=== PATIENT | female | born 1975 | race Caucasian/White ===

== ENCOUNTER 2016-09-24 14:11 | Inpatient (IN) | payer BC ==
[~2016-09-24] VITALS: Ht 160 cm; Wt 72.3 kg
[2016-09-24 14:37] LABS: BASOPHIL COUNT 0.1 K/uL (0-0.1); EOSINOPHIL (%) 0 % (0-5); HEMATOCRIT 39.3 % (36.0-46.0); IMMATURE GRANULOCYTE (%) 0.7 % (0.0-0.7); IMMATURE GRANULOCYTE COUNT 0.2 K/uL; INSTRUMENT ABS NEUTROPHIL CT 23.7 K/uL; LYMPHOCYTE COUNT 0.7 K/uL (1.0-2.8); MCHC 34.4 G/DL (30.0-36.0); MCV 84.5 FL (83-99); MEAN PLAT.VOLUME 10.9 uM^3 (9.5-12.4); MONOCYTE (%) 4.4 % (3-12); MONOCYTE COUNT 1.2 K/uL (0-0.8); NEUTROPHIL (%) 91.8 % (45-76); NEUTROPHIL COUNT 23.7 K/uL (1.8-6.4); PLATELET COUNT 298 K/uL (156-360); RBC DIS.WIDTH-CV 12.2 % (11.8-14.6); RBC DIS.WIDTH-SD 37.1 % (39-53); RED BLOOD COUNT 4.65 M/uL (3.80-5.20); WHITE BLOOD COUNT 25.9 K/uL (4.1-10.2)
[2016-09-24 14:46] LABS: CHLORIDE 103 mEq/L (99-109); POTASSIUM 3.6 mEq/L (3.7-5.4); SODIUM 137 mEq/L (136-147)
[2016-09-24 14:47] LABS: GLUCOSE 109 mg/dL (70-99)
[2016-09-24 14:49] LABS: ANION GAP 16 MEQ/L (2-14)
[2016-09-24 14:51] LABS: GFR ESTIMATE (CALCULATED) 44 mL/min/
[2016-09-24 14:52] LABS: UREA NITROGEN (BUN) 17 mg/dL (9-23)
[2016-09-24 15:00] LABS: QUANTITATIVE HCG < 4.0 MIU/ML
[2016-09-24 15:54] LABS: VENOUS PCO2 < 20 mm Hg (41-51)
[2016-09-24 15:57] LABS: CARBON DIOXIDE (BICARBONATE) ND MEQ/L (20-31)
[2016-09-24 16:23] LABS: TOTAL BILIRUBIN 1.1 mg/dL (0.0-1.0)
[2016-09-24 16:24] LABS: ALKALINE PHOSPHATASE 67 IU/L (3-129)
[2016-09-24 16:26] LABS: DIRECT BILIRUBIN 0.4 mg/dL (0.0-0.3)
[2016-09-24 16:44] LABS: ADD MIUA? YES; BILIRUBIN NEGATIVE; BLOOD SMALL; COLOR STRAW ((YELLOW)); GLUCOSE (STRIP) NEGATIVE; KETONES 20; LEUKOCYTES MODERATE; NITRITE NEGATIVE; PROTEIN (STRIP) 30; SPECIFIC GRAVITY 1.006 (1.000-1.030); UROBILINOGEN 0.2 MG/DL (0.2-1.0)
[2016-09-24 17:01] LABS: BACTERIA RARE /HPF; EPITHELIAL CELLS RARE /HPF; MUCUS TRACE /LPF; RED BLOOD CELLS 0-5 /HPF (0-5); UCUL ADDED? NO; WHITE BLOOD CELLS 15-20 /HPF (0-5)
[2016-09-24 18:21] LABS: INFLUENZA A VIRAL ANTIGEN NEGATIVE; INFLUENZA B VIRAL ANTIGEN NEGATIVE
[2016-09-24 22:37] VITALS: BP 111/55
[2016-09-25 00:41] VITALS: BP 116/61
[2016-09-25 07:55] VITALS: BP 135/63
[2016-09-25 08:11] LABS: EOSINOPHIL (%) 0 % (0-5); IMMATURE GRANULOCYTE (%) 0.5 % (0.0-0.7); IMMATURE GRANULOCYTE COUNT 0.1 K/uL; INSTRUMENT ABS NEUTROPHIL CT 10.2 K/uL; LYMPHOCYTE COUNT 0.2 K/uL (1.0-2.8); MCHC 33.8 G/DL (30.0-36.0); MCV 85.6 FL (83-99); MONOCYTE (%) 3.8 % (3-12); MONOCYTE COUNT 0.4 K/uL (0-0.8); NEUTROPHIL (%) 93.4 % (45-76); NEUTROPHIL COUNT 10.2 K/uL (1.8-6.4); RBC DIS.WIDTH-CV 12.5 % (11.8-14.6); RBC DIS.WIDTH-SD 39.1 % (39-53); RED BLOOD COUNT 3.97 M/uL (3.80-5.20); WHITE BLOOD COUNT 10.9 K/uL (4.1-10.2)
[2016-09-25 08:35] LABS: CHLORIDE 112 mEq/L (99-109); SODIUM 138 mEq/L (136-147)
[2016-09-25 08:37] LABS: GLUCOSE 125 mg/dL (70-99)
[2016-09-25 08:39] LABS: ANION GAP 11 MEQ/L (2-14)
[2016-09-25 08:41] LABS: GFR ESTIMATE (CALCULATED) 58 mL/min/
[2016-09-25 08:42] LABS: UREA NITROGEN (BUN) 15 mg/dL (9-23)
[2016-09-25 09:40] LABS: MEAN PLAT.VOLUME 11.8 uM^3 (9.5-12.4); PLAT.SUFFICIENCY ADEQUATE
[2016-09-25 09:41] LABS: PLATELET COUNT 191 K/uL (156-360)
[2016-09-25 17:48] VITALS: BP 123/62
[2016-09-25 23:36] VITALS: BP 99/59
[2016-09-26 06:37] LABS: HEMATOCRIT 29.5 % (36.0-46.0); MCH 29.4 PG (29.0-34.0); MCHC 33.6 G/DL (30.0-36.0); MCV 87.5 FL (83-99); MEAN PLAT.VOLUME 11.6 uM^3 (9.5-12.4); PLATELET COUNT 159 K/uL (156-360); RBC DIS.WIDTH-CV 12.6 % (11.8-14.6); RBC DIS.WIDTH-SD 40.9 % (39-53); RED BLOOD COUNT 3.37 M/uL (3.80-5.20)
[2016-09-26 07:04] LABS: ANION GAP 12 MEQ/L (2-14); CHLORIDE 107 MEQ/L (99-109); GFR ESTIMATE (CALCULATED) > 59 mL/min/; GLUCOSE 120 mg/dL (70-99); POTASSIUM 3.4 MEQ/L (3.7-5.4); SAMPLE HEMOLYSIS CHECK 0; SAMPLE ICTERIC CHECK 0; SAMPLE LIPEMIA CHECK 0; SODIUM 137 MEQ/L (136-147); UREA NITROGEN (BUN) 13 mg/dL (9-23)
[2016-09-26 07:47] LABS: ABS NEUTROPHIL COUNT 12.7; ATYPICAL LYMPHOCYTE 0.9 %; BAND NEUTROPHILS 0.9 % (0-8.0); BASOPHILS 1.7 %; BURR CELLS 2+; EOSINOPHIL ABS CT 0.1; EOSINOPHILS 0.9 % (0-5.0); INSTRUMENT ABS NEUTROPHIL CT 12.4 K/uL; LYMPHOCYTES 2.6 % (15.0-45.0); MYELOCYTES 0.9 %; PLAT.SUFFICIENCY ADEQUATE; POIKILOCYTOSIS 3+; SEG.NEUTROPHILS 89.5 % (46.0-76.0)
[2016-09-26 07:58] VITALS: BP 107/57
[2016-09-26 17:00] VITALS: BP 133/63
[2016-09-27 00:01] VITALS: BP 111/54
[2016-09-27 06:23] LABS: EOSINOPHIL (%) 0.9 % (0-5); EOSINOPHIL COUNT 0.1 K/uL (0-0.3); HEMATOCRIT 29.2 % (36.0-46.0); IMMATURE GRANULOCYTE (%) 0.6 % (0.0-0.7); IMMATURE GRANULOCYTE COUNT 0.1 K/uL; INSTRUMENT ABS NEUTROPHIL CT 6.7 K/uL; LYMPHOCYTE COUNT 1.9 K/uL (1.0-2.8); MCH 29.6 PG (29.0-34.0); MCHC 33.9 G/DL (30.0-36.0); MCV 87.2 FL (83-99); MONOCYTE (%) 11.3 % (3-12); MONOCYTE COUNT 1.1 K/uL (0-0.8); NEUTROPHIL (%) 67.9 % (45-76); NEUTROPHIL COUNT 6.7 K/uL (1.8-6.4); PLATELET COUNT 186 K/uL (156-360); RBC DIS.WIDTH-CV 12.8 % (11.8-14.6); RBC DIS.WIDTH-SD 40.6 % (39-53); RED BLOOD COUNT 3.35 M/uL (3.80-5.20); WHITE BLOOD COUNT 9.8 K/uL (4.1-10.2)
[2016-09-27 06:53] LABS: ANION GAP 8 MEQ/L (2-14); CHLORIDE 108 MEQ/L (99-109); GFR ESTIMATE (CALCULATED) > 59 mL/min/; GLUCOSE 92 mg/dL (70-99); POTASSIUM 3.9 MEQ/L (3.7-5.4); SAMPLE HEMOLYSIS CHECK 0; SAMPLE ICTERIC CHECK 0; SAMPLE LIPEMIA CHECK 0; SODIUM 139 MEQ/L (136-147); UREA NITROGEN (BUN) 14 mg/dL (9-23)
[2016-09-27 07:47] VITALS: BP 132/74
[2016-09-27] MEDS ORDERED: ZOFRAN4 MG PO (12:11)
[2016-09-27] MEDS ORDERED: PAIN RELIEF325 M1 PO (12:12)
[2016-09-27] MEDS ORDERED: CIPROFLOXACIN500 M1 PO (12:13)
== END 2016-09-27 13:32 | disposition home or self-care (01) | DRG 872 ==
LOC: EME 14:11 → 5EAST 19:41 → EDOF 19:41 → 5EAST 21:47
PROVIDERS: Internal Medicine; Nurse Practitioner Family
DX: A41.51 Sepsis due to Escherichia coli [E. coli] (principal); N17.9 Acute kidney failure, unspecified; E87.6 Hypokalemia; N28.1 Cyst of kidney, acquired; R65.20 Severe sepsis without septic shock; N10 Acute pyelonephritis
CPT/HCPCS: 71020; 74177; 80048; 80076; 81003; 82803; 83605; 84702; 85025; 87040; 87077; 87086; 87186; 87502; 87651 90; 87801; 99281; 99285; J0696; J0744; J1644; J2270; J2405; J2543; J2765; J3010; J3370; J7030; J7050